=== PATIENT | female | born 1995 | race Caucasian/White ===

== ENCOUNTER 2016-11-17 16:37 | Emergency (ER) | payer OTHER ==
[~2016-11-17] VITALS: Ht 160 cm; Wt 63.0 kg
[~2016-11-17 16:37] MED LIST: ACET500C5 PO; CIME400T PO; ELIM TOP; IBUP-1542 PO; IMIQ1CRE14 TOP
[2016-11-17 16:40] VITALS: Ht 160 cm; Wt 63.0 kg
[2016-11-17] MEDS ORDERED: CLOT30CR24 TOP (16:59)
[2016-11-17] MEDS ORDERED: FLUC150T17 PO (16:59)
[2016-11-17] MEDS ORDERED: BEN25 PO (17:00)
--- NOTE | 2016-11-17 17:03 | ERD ---
ER Documentation Chief Complaint Date/Time DATE: 11/17/16 TIME: 17:03 Chief Complaint RASH ON CHEST AND AXILLARY AREA X 4 DAYS HPI Patient is a 21-year-old female who presents to the emergency department with a rash on her chest and bilateral axilla 4 days. Patient states the rash started [place] the [place]. Patient states the rash is erythematous and got leg. Patient states that the rash initially was under her breast however it is now spread to her axilla. Patient states the rash is itchy. Patient does report scratching the rash throughout the night. Patient denies any new lotions, creams, foods, medications, environments or pets. Patient denies any lip swelling, tongue swelling, throat closure sensation, chest tightness or difficulty breathing. ROS All systems reviewed and are negative except as per history of present illness. Medications Home Meds Active Scripts Diphenhydramine Hcl* (Benadryl*) 25 Mg Cap, 25 MG PO Q6, #30 CAP Prov:MILY CACERES PA-C 11/17/16 Clotrimazole* (Clotrimazole* AF) 1% - 30 Gm Cream.gm., 1 APPLIC TOP BID for 7 Days, #1 TUB Prov:MILY CACERES PA-C 11/17/16 Fluconazole* (Diflucan*) 150 Mg Tablet, 150 MG PO ONCE, #2 TAB Prov:MILY CACERES PA-C 11/17/16 Ibuprofen* (Motrin*) 600 Mg Tab, 600 MG PO Q6H Y for PAIN AND OR ELEVATED TEMP, #30 TAB Prov:AVINASH ESTRADA NP 08/01/15 Permethrin* (Elimite*) 5% Cr, 1 APPLIC TOP ONCE for 1 Day, TUB Prov:HUYEN GONZALES 04/04/15 Cimetidine* (Cimetidine*) 400 Mg Tablet, 400 MG PO QHS, #3 TAB Take 400 mg 1 table PO weeks 2, 4, 6 Prov:HUYEN GONZALES 04/04/15 Imiquimod (Imiquimod) 5% Cream.pack, 1 PACKET TOP 3X for 7 Days, EA Prov:HUYEN GONZALES 04/04/15 Reported Medications Acetaminophen* (Tylophen*) Unknown Strength Capsule, PO Q8H Y for PAIN AND OR ELEVATED TEMP, #20 CAP 08/01/15 Allergies Allergies: Coded Allergies: No Known Allergies (Unverified Allergy, Unknown, 04/04/15) PMhx/Soc History of Surgery: No Anesthesia Reaction: No Hx Neurological Disorder: No Hx Respiratory Disorders: No Hx Cardiac Disorders: No Hx Psychiatric Problems: No Hx Miscellaneous Medical Probl: Yes (devlivered a child 2014) Hx Alcohol Use: No Hx Substance Use: No Hx Tobacco Use: No FmHx Family History: No diabetes Physical Exam Vitals Vital Signs Date Time Temp Pulse Resp B/P Pulse Ox O2 Delivery O2 Flow Rate FiO2 11/17/16 16:40 99.1 70 16 115/75 96 Physical Exam GENERAL: Well-developed, well-nourished female. Appears in no acute distress. Speaking in full sentences HEAD: Normocephalic, atraumatic. EYES: Pupils are equally reactive bilaterally. EOMs grossly intact. No conjunctival erythema. No lip swelling. No tongue swelling. Able to swallow secretions without any difficulty. ENT: Moist mucous membranes. No uvula deviation. No kissing tonsils. NECK: Supple. No meningismus. Normal range of motion of the neck. LUNG: Clear to auscultation bilaterally. No rhonchi, wheezing, rales or coarse breath sounds. HEART: Regular rate and rhythm. No murmurs, rubs or gallops. EXTREMITIES: Equal pulses bilaterally. No peripheral clubbing, cyanosis or edema. No unilateral leg swelling. NEUROLOGIC: Alert and oriented. Moving all four extremities without any difficulty. Normal speech. Steady gait. SKIN: Normal color. Warm and dry. Bright red macules noted under the patient's bilateral breasts and in her bilateral axilla. Satellite lesions noted on the patient's left upper arm. Excoriations noted in axilla. Procedures/MDM MEDICAL DECISION MAKING: This is a 21-year-old female presents with an erythematous rash below her bilateral breasts and axilla. Vital signs were reviewed. Patient was afebrile. Patient is not diabetic. Given patient's history and physical exam findings, the patients presentation is most consistent with candidiasis. I have a much lower clinical concern for necrotizing fasciitis, sepsis, gangrene, Kaleb- Juan syndrome, toxic epidural necrolysis, abscess, cellulitis, herpes zoster , viral exanthem, anaphylaxis, allergic reaction, insect bite, impetigo, dermatitis. PRESCRIPTIONS: Prednisone, fluconazole, clotrimazole cream Patient was advised to take 1 tablet of Fluconazole today, and take 1 tablet in a week if her symptoms persist. DISCHARGE: At this time, patient is stable for discharge and outpatient management. Patient was advised to keep affected areas clean and dry. I have advised the patient to avoid any new products, creams or possible allergens. I have advised the patient to avoid scratching the lesions. I have instructed the patient to follow-up with his/her primary care physician in 1-2 days. If symptoms persist, patient may need to see a test development engineer for further examinations and testing. I have instructed the patient to promptly return to the ER at any time for any new or worsening symptoms including increased pain, fever, redness, swelling, warmth, difficulty breathing or vomiting. The patient and/or family expressed understanding of and agreement with this plan. All questions were answered. Home care instructions were provided. Departure Diagnosis: Primary Impression: Candidiasis of breast Condition: Stable Patient Instructions: [facility]anda Skin Infection (Adult) Referrals: CHANDNI OLIVA,ANRESH ALVARADO MD, MD Additional Instructions: Call your primary care doctor TOMORROW for an appointment during the next 1-2 days.See the doctor sooner or return here if your condition worsens before your appointment time. Keep affected area clean and dry. MILY CACERES PA-C Nov 17, 2016 17:03
== END 2016-11-17 17:17 | disposition home or self-care (01) ==
LOC: FTE 16:37
DX: B37.89 Other sites of candidiasis (principal)
CPT/HCPCS: 99283

== ENCOUNTER 2017-11-11 15:36 | Emergency (ER) | END 2017-11-11 16:51 | disposition home or self-care (01) ==